=== PATIENT | female | born 1990 | race Caucasian/White ===

== ENCOUNTER → 2023-11-13 19:29 | Outpatient (REF) | payer BC, SELFPAY | LOC: MRI 3T 19:29 | PROVIDERS: ATTENDING PHYSICIAN Specialist; FAMILY PHYSICIAN Family Medicine | DX: I63.9 Cerebral infarction, unspecified (principal); I72.9 Aneurysm of unspecified site | CPT/HCPCS: 70544; 70553; A9575 ==

== ENCOUNTER → 2024-06-12 08:57 | Outpatient (REF) | payer BC, SELFPAY | LOC: WDC 08:57 | PROVIDERS: ATTENDING PHYSICIAN Physician Assistant Medical | DX: N63.13 Unspecified lump in the right breast, lower outer quadrant (principal) | CPT/HCPCS: 76642; 77062; 77066 ==